=== PATIENT | male | born 1950 | race Caucasian/White ===

== ENCOUNTER 2018-11-04 07:34 | Emergency (ER) | payer OTHER ==
--- NOTE | 2018-11-04 08:31 | EDPHYS ---
Physician Documentation [facility] Name: Guillermo Barry Age: 68 yrs Sex: Male : 1950 Arrival Date: 11/04/2018 Time: 07:38 Bed 15 Private MD: ED Physician Grayson Ambrocio HPI: 11/04 07:52 This 68 yrs old Male presents to ER via Ambulatory with complaints of Foreign jr8 Body In Ear. 07:52 The patient presents with a foreign body sensation. The complaints affect the right jr8 ear. Onset: The symptoms/episode began/occurred acutely, 2 day(s) ago. Modifying factors: The symptoms are alleviated by nothing, the symptoms are aggravated by nothing. Associated signs and symptoms: Pertinent positives: bleeding. Severity of symptoms: At their worst the symptoms were mild in the emergency department the symptoms are unchanged. The patient has not experienced similar symptoms in the past. The patient has not recently seen a physician. Stated that he was cleaning ear with Q-tip. Stated that he thought the cotton remained in ear and could not find it. Has had some bleeding inside ear. Denies tinnitus or hearing loss . Historical: - Allergies: 07:47 No Known Allergies; ss - Immunization history:: Adult Immunizations up to date. - Social history:: Smoking status: Patient/guardian denies using tobacco. - Ebola Screening: : Patient denies exposure to infectious person Patient denies travel to an Ebola-affected area in the 21 days before illness onset. ROS: 07:52 Constitutional: Negative for fever, chills, and weight loss. jr8 07:52 ENT: Positive for ear pain, foreign body sensation, Negative for rhinorrhea, sinus congestion, sinus pain. 07:52 All other systems are negative. Exam: 07:52 Head/Face: Normocephalic, atraumatic. Eyes: Pupils equal round and reactive to light, jr8 extra-ocular motions intact. Lids and lashes normal. Conjunctiva and sclera are non-icteric and not injected. Cornea within normal limits. Periorbital areas with no swelling, redness, or edema. ENT: Nares patent. No nasal discharge, no septal abnormalities noted. Left external ear, canal, and TM without acute findings. Right external ear normal. Canal with mild dried and fresh blood at inferior portion of canal. TM only partially seen due to impaction. Oropharynx with no redness, swelling, or masses, exudates, or evidence of obstruction, uvula midline. Mucous membranes moist. Neck: Trachea midline, no thyromegaly or masses palpated, and no cervical lymphadenopathy. Supple, full range of motion without nuchal rigidity, or vertebral point tenderness. No Meningismus. Cardiovascular: Regular rate and rhythm with a normal S1 and S2. No gallops, murmurs, or rubs. Normal PMI, no JVD. No pulse deficits. Respiratory: Lungs have equal breath sounds bilaterally, clear to auscultation and percussion. No rales, rhonchi or wheezes noted. No increased work of breathing, no retractions or nasal flaring. Skin: Warm, dry with normal turgor. Normal color with no rashes, no lesions, and no evidence of cellulitis. MS/ Extremity: Pulses equal, no cyanosis. Neurovascular intact. Full, normal range of motion. Neuro: Awake and alert, GCS 15, oriented to person, place, time, and situation. Cranial nerves II-XII grossly intact. Motor strength 5/5 in all extremities. Sensory grossly intact. Cerebellar exam normal. Normal gait. Vital Signs: 07:47 BP 167 / 92; Pulse 87; Resp 18; Temp 98.2(TE); Pulse Ox 96% on R/A; Weight 113.4 kg; ss Height 5 ft. 10 in. (177.80 cm); Pain 0/10; 07:47 Body Mass Index 35.87 (113.40 kg, 177.80 cm) MDM: 07:46 Patient medically screened. [facility] 08:28 Data reviewed: vital signs, nurses notes, and as a result, I will discharge patient. jr8 Data interpreted: Pulse oximetry: on room air is 96 %. Interpretation: normal. Counseling: I had a detailed discussion with the patient and/or guardian regarding: the historical points, exam findings, and any diagnostic results supporting the discharge/admit diagnosis, the need for outpatient follow up, an ENT specialist, to return to the emergency department if symptoms worsen or persist or if there are any questions or concerns that arise at home. ED course: Bleeding in canal only from what it appears. Cerumen was flushed but still impacted on TM. Will need to see ENT for better extraction of cerumen impaction. Will be put on otologic drops for now. 11/04 07:52 Order name: Davy. Order: right ear irrigation; Complete Time: 08:36 jr8 Administered Medications: No medications were administered Disposition: 15:32 Co-signature as Attending Physician, Grayson Ambrocio MD I agree with the assessment and kdr plan of care. Disposition: 11/04/18 08:30 Discharged to Home. Impression: Impacted cerumen, right ear, Abrasion of right ear - ear canal . - Condition is Stable. - Discharge Instructions: Earwax Buildup, Adult, Ear Drops, Adult, Ear Irrigation. - Prescriptions for Cortisporin 3.5- 10,000-1 mg/mL-unit/mL-% Otic solution - instill 4 drop by OTIC route every 8 hours for 5 days; 1 bottle. - Medication Reconciliation Form, Thank You Letter, Antibiotic Education, Prescription Opioid Use form. - Follow up: Private Physician; When: 2 - 3 days; Reason: Recheck today's complaints, Continuance of care, Re-evaluation by your physician. - Problem is new. - Symptoms have improved. Signatures: Grayson Ambrocio MD MD kdr Obi Lyle, MANAGER ED MANAGER ED em Leigh Pinon RN RN ss Richi Ceballos PA PA jr8 Corrections: (The following items were deleted from the chart) 08:39 08:30 11/04/2018 08:30 Discharged to Home. Impression: Impacted cerumen, right ear; em Abrasion of right ear - ear canal . Condition is Stable. Forms are Medication Reconciliation Form, Thank You Letter, Antibiotic Education, Prescription Opioid Use. Follow up: Private Physician; When: 2 - 3 days; Reason: Recheck today's complaints, Continuance of care, Re-evaluation by your physician. Problem is new. Symptoms have improved. jr8
--- NOTE | 2018-11-04 08:31 | ER ---
Nurse's Notes [facility] Name: Guillermo Barry Age: 68 yrs Sex: Male : 1950 Arrival Date: 11/04/2018 Time: 07:38 Bed 15 Private MD: Diagnosis: Impacted cerumen, right ear;Abrasion of right ear-ear canal Presentation: 11/04 07:45 Presenting complaint: Patient states: end of Q-Tip stuck in ear 1-2 days ago. Dry blood ss noted to R ear. Transition of care: patient was not received from another setting of care. Onset of symptoms was November 02, 2018. Risk Assessment: Do you want to hurt yourself or someone else? Patient reports no desire to harm self or others. Initial Sepsis Screen: Does the patient meet any 2 criteria? No. Patient's initial sepsis screen is negative. Does the patient have a suspected source of infection? No. Patient's initial sepsis screen is negative. Care prior to arrival: None. 07:45 Method Of Arrival: Ambulatory ss 07:45 Acuity: MARI 4 ss Historical: - Allergies: 07:47 No Known Allergies; ss - Immunization history:: Adult Immunizations up to date. - Social history:: Smoking status: Patient/guardian denies using tobacco. - Ebola Screening: : Patient denies exposure to infectious person Patient denies travel to an Ebola-affected area in the 21 days before illness onset. Screenin:19 Abuse screen: Denies threats or abuse. Denies injuries from another. Nutritional sv screening: No deficits noted. Tuberculosis screening: No symptoms or risk factors identified. Fall Risk None identified. Assessment: 07:42 General: Appears in no apparent distress. comfortable, Behavior is calm, cooperative, em Denies fever. Pain: Denies pain. Neuro: Level of Consciousness is awake, alert, obeys commands, Oriented to person, place, time, situation. Cardiovascular: Capillary refill < 3 seconds Patient's skin is warm and dry. Respiratory: Airway is patent Respiratory effort is even, unlabored, Respiratory pattern is regular, symmetrical. EENT: Tympanic membrane not visualized right ear Ear canal w/ bleeding noted from right ear Pinna with no deformity noted on right ear. Derm: Skin is intact, is healthy with good turgor, Skin is pink, warm \T\ dry. Musculoskeletal: Range of motion: intact in all extremities. 07:50 Reassessment: Patient appears in no apparent distress at this time. I agree with the sv above assessment. 08:10 Reassessment: Patient appears in no apparent distress at this time. irrigated right ear em with about 500ml luke warm NS, small amount of sediment irrigated, moderate size cerumen impaction noted in right ear, provider notified. Vital Signs: 07:47 BP 167 / 92; Pulse 87; Resp 18; Temp 98.2(TE); Pulse Ox 96% on R/A; Weight 113.4 kg; ss Height 5 ft. 10 in. (177.80 cm); Pain 0/10; 07:47 Body Mass Index 35.87 (113.40 kg, 177.80 cm) ED Course: 07:38 Patient arrived in ED. as 07:40 Obi Lyle LVN is Primary Nurse. em 07:45 Richi Ceballos PA is PHCP. jr8 07:46 Triage completed. ss 07:47 Arm band placed on right wrist. ss 07:56 Grayson Ambrocio MD is Attending Physician. jr8 08:10 Ear irrigation: Route right ear with amount 500ml Patient tolerated well. em 08:19 Patient has correct armband on for positive identification. Bed in low position. Door sv closed. Head of bed elevated. 08:39 No provider procedures requiring assistance completed. Patient did not have IV access em during this emergency room visit. Administered Medications: No medications were administered Outcome: 08:30 Discharge ordered by . jr8 08:39 Discharged to home ambulatory. em 08:39 Condition: good 08:39 Discharge instructions given to patient, Instructed on discharge instructions, follow up and referral plans. medication usage, Demonstrated understanding of instructions, follow-up care, medications, Prescriptions given X 1. 08:39 Patient left the ED. em Signatures: Julee Smith RN RN Obi Lyle LVN LVN em Kendy Chavira Shelby, RN RN Richi Ceballos PA PA jr8
== END 2018-11-04 08:39 | disposition home or self-care (01) ==
LOC: ER 07:34
PROC: 3E1B78Z Irrigation of Ear using Irrigating Substance, Via Natural or Artificial Opening (ICD-10-PCS; principal; 2018-11-04)
DX: H61.21 Impacted cerumen, right ear (principal); S00.411A Abrasion of right ear, initial encounter
CPT/HCPCS: 99283